=== PATIENT | female | born 1935 | race Caucasian/White ===

== ENCOUNTER → 2017-10-30 13:09 | Outpatient (CLI) | payer MEDICARE, BC ==
[2016-03-18 10:40] VITALS: BMI 22.5
[~2017-10-30 13:09] MED LIST: ALENDRONATE SOD70 MG PO; ASCORBIC ACID500 MG; BEET ROOT PO; COLACE100 MG PO; FLORAJEN3 CAPS460 MG PO; HYDROCODON-ACE1 EAC7 PO; HYDROCODONE-APA1 TAB PO; LEVAQUIN500 MG PO; MIRAPEX0.125 MG PEG; MIRAPEX0.125 MG PO; MULTIPLE VITAMI1 TA1 PO; PRESERVISION AR1 CAP PO; PROBENECID500 MG PO; PROBIOTIC250 MG PO; RED YEAST RICE600 MG PO; SINEMET 10/101 UDTAB PO; ULTRAM50 MG PO; VASOTEC10 MG PO; VITAMIN C250 MG PT; VITAMIN D31000 UNIT PO; ZOFRAN4 MG PO
== END | disposition home or self-care (01) ==
LOC: D.LABREF 13:09
DX: Z96.619 Presence of unspecified artificial shoulder joint (principal); Z11.8 Encounter for screening for other infectious and parasitic diseases

== ENCOUNTER 2017-11-05 09:38 | Inpatient (IN) | payer MEDICARE, BC ==
[2017-11-03 15:40] LABS: BASOPHILS 0.3 % (0-2); EOSINOPHILS 1.1 % (0-7); HEMATOCRIT 38.6 % (36.0-48.0); HEMOGLOBIN 12.7 g/dL (12-16); IMMATURE GRANULOCYTES 0.1 % (0-5); LYMPHOCYTES 29.2 % (15-50); MCH 31.9 pg (26.0-34.0); MCHC 32.9 g/dL (31.0-37.0); MEAN PLATELET VOLUME 9.7 fL (7.4-10.4); MONOCYTES 9.9 % (2-11); NEUTROPHILS 59.4 % (40-80); PLATELET COUNT 392 10x3/uL (130-400); RBC 3.98 10x6/uL (4.00-5.40); RDW 12.9 % (11.5-14.5); WBC 7.1 10x3/uL (4.8-10.8)
[2017-11-03 15:53] LABS: APPEARANCE HAZY (CLEAR); BILIRUBIN NEGATIVE (NEGATIVE); COLOR YELLOW (YELLOW); GLUCOSE NEGATIVE (NEGATIVE); KETONE NEGATIVE (NEGATIVE); NITRITE POSITIVE (NEGATIVE); PROTEIN NEGATIVE (NEGATIVE); SPECIFIC GRAVITY 1.025 (1.005-1.020); UROBILINOGEN NORMAL (NORMAL)
[2017-11-03 15:54] LABS: RED CELLS - URINE 0-5 /hpf (0-5); WHITE CELLS - URINE >50 /hpf (0-5)
[2017-11-03 15:55] LABS: BACTERIA MODERATE /hpf (NONE SEEN); EPITHELIAL CELLS 0-5 /hpf (0-5)
[2017-11-03 15:58] LABS: ANION GAP 12.6 mmol/L (8-16); APTT 29.7 SECONDS (22.8-39.4); CARBON DIOXIDE 26.7 mmol/L (21.0-32.0); CREATININE - SERUM 0.8 mg/dL (0.6-1.3); INR 1.08 (0.85-1.17); POTASSIUM - SERUM 4.3 mmol/L (3.5-5.1); PROTIME 13.6 SECONDS (11.6-15.0)
[~2017-11-05] VITALS: Ht 167.6 cm; Wt 63.5 kg
--- NOTE | ~2017-11-05 | OP ---
PATIENT NAME: ELICIA NUNES MEDICAL RECORD: [id number] :37 LOCATION:[facility] ADMISSION DATE:11/05/17 SURGEON: BRI COLON MD DATE OF OPERATION: 11/05/2017 PREOPERATIVE DIAGNOSIS: Complex periprosthetic fracture of the right shoulder. POSTOPERATIVE DIAGNOSIS: Complex periprosthetic fracture of the right shoulder. PROCEDURE: Revision reverse total shoulder arthroplasty. ANESTHESIA: General. INTRAOPERATIVE COMPLICATIONS: None. SUMMARY OF PATHOLOGIC FINDINGS: Consistent with the preoperative diagnosis. The patient had a periprosthetic fracture about a primary total shoulder arthroplasty. ESTIMATED BLOOD LOSS: 800 cc. OPERATIVE SUMMARY IN DETAIL: After obtaining the appropriate preoperative orthopedic surgery consent as well as anesthetic consultation, evaluation and clearance, the patient was brought to the operating room and placed on the operating table in supine position. After general laryngeal mask airway was administered, the patient was placed in the beach chair position. All pressure points were well padded. She was held firmly to the operating table using the vacuum pack suction system. Right upper extremity was prepped and draped in routine sterile fashion. The arm was held in the Trimano arm holding device. Deltopectoral incision was created over the old deltopectoral interval. Dissection was gently carried down to the level of fracture and the previously placed total shoulder arthroplasty, which was removed as was the glenoid, which was loose. Attention was first turned to glenoid resurfacing. Serial and sequential glenoid reaming was then followed by preparations for the baseplate. Baseplate was then put into place using the Tornier Metaglene. After this, the glenosphere was affixed with central screw and peripheral Henderson taper. Next, serial and sequential reaming and broaching were done for the 100-mm stem using [employer] Dream[employer] system. Appropriate version was checked and the stem was put into place. This was then followed by multiple trials with the polyethylene. Appropriate polyethylene was fixed. The shoulder was reduced. Greater tuberosities were then reapproximated on the lateral side of the reverse total shoulder. Having completed this, the wound was copiously irrigated. Please note that fluoroscopy was used during this case to be sure that the intramedullary guidewire was appropriately placed. The wound was copiously irrigated. Deltopectoral interval was closed followed by skin closure with #1 Vicryl and skin julisa. Sterile dressings were applied. The patient was awakened, taken to recovery in stable condition. All final needle and sponge counts were correct. TRANSINT:[id number] Voice Confirmation ID: [id number] DOCUMENT ID: [id number] OPERATIVE REPORT [id number] ELICIA NUNES MD, BRI HERMOSILLO at 1117 CC: [id number] DICTATION DATE: 12/03/17940 CHIEF INNOVATION OFFICER: 12/03/17 1110 DIS IN 11/08/17 [place] [id number]
[~2017-11-05 09:38] MED LIST changes: -COLACE100 MG PO; -FLORAJEN3 CAPS460 MG PO; -HYDROCODONE-APA1 TAB PO; -ZOFRAN4 MG PO
[2017-11-05 10:46] VITALS: BP 114/64; BMI 22.8
[2017-11-05 15:59] VITALS: BP 125/70
[2017-11-05 20:46] VITALS: BP 89/56
[2017-11-06] VITALS (7 sets, daily range): BP systolic 87–136; BP diastolic 47–72; Ht 167.6 cm; Wt 63.5 kg
[2017-11-06 06:26] LABS: HEMATOCRIT 28.6 % (36.0-48.0); HEMOGLOBIN 9.2 g/dL (12-16); MCH 31.5 pg (26.0-34.0); MCHC 32.2 g/dL (31.0-37.0); MCV 97.9 fL (80.0-100.0); MEAN PLATELET VOLUME 9.9 fL (7.4-10.4); RBC 2.92 10x6/uL (4.00-5.40); RDW 13.1 % (11.5-14.5); WBC 10.2 10x3/uL (4.8-10.8)
[2017-11-07 04:20] VITALS: BP 112/59
[2017-11-07 05:06] LABS: HEMATOCRIT 27.6 % (36.0-48.0); MCH 31.6 pg (26.0-34.0); MCHC 32.6 g/dL (31.0-37.0); MCV 96.8 fL (80.0-100.0); RBC 2.85 10x6/uL (4.00-5.40); RDW 13.1 % (11.5-14.5); WBC 12.4 10x3/uL (4.8-10.8)
[2017-11-07 08:00] VITALS: BP 111/67
[2017-11-07 11:54] VITALS: BP 120/68
[2017-11-07 15:31] VITALS: BP 125/75
[2017-11-07 20:00] VITALS: BP 129/61
[2017-11-08] VITALS: BP 122/70
[2017-11-08 06:12] VITALS: BP 125/70
[2017-11-08 08:19] VITALS: BP 139/77
[2017-11-08 12:19] VITALS: BP 145/80
[2017-11-08] MEDS ORDERED: HYDROCODONE-APA1 TAB PO (19:22)
[2017-11-08] MEDS ORDERED: COLACE100 MG PO (19:25)
[2017-11-08] MEDS ORDERED: FLORAJEN3 CAPS460 MG PO (19:25)
[2017-11-08] MEDS ORDERED: ZOFRAN4 MG PO (19:26)
[2017-11-08 20:21] VITALS: BP 162/66
== END 2017-11-08 21:01 | DRG 483 ==
LOC: D.MS 09:38 → D.SDCHOLD 09:38 → D.MS 15:41
PROVIDERS: Orthopaedic Surgery
PROC: 0RPJ0JZ Removal of Synthetic Substitute from Right Shoulder Joint, Open Approach (ICD-10-PCS; 2017-11-05)
PROC: 0RRJ00Z Replacement of Right Shoulder Joint with Reverse Ball and Socket Synthetic Substitute, Open Approach (ICD-10-PCS; principal; 2017-11-05 13:15)
DX: M97.31XA Periprosthetic fracture around internal prosthetic right shoulder joint, initial encounter (principal); D62 Acute posthemorrhagic anemia; N39.0 Urinary tract infection, site not specified; I10 Essential (primary) hypertension; R13.10 Dysphagia, unspecified; G20 Parkinson's disease

== ENCOUNTER 2017-11-08 19:39 | Inpatient (IN) | payer MEDICARE, BC ==
[~2017-11-08] VITALS: Ht 167.6 cm; Wt 63.5 kg
--- NOTE | ~2017-11-08 | RHP ---
PATIENT: ELICIA NUNES MEDICAL RECORD: [id number] ACCOUNT: [id number] LOCATION:[facility] : 36 ADMISSION DATE: 11/08/17 REHABILITATION HISTORY AND PHYSICAL EXAMINATION POST ADMISSION PHYSICIAN EXAMINATION DATE OF ADMISSION: 11/08/2017. ADMITTING DIAGNOSIS: Parkinson. HISTORY OF PRESENT ILLNESS: The patient is an 82-year-old female patient admitted to the inpatient rehab with Parkinson. She had a right reverse total shoulder on 11/05/[address] Anders. She was seen in the office on 10/29/2017 for closed fracture of the right upper humerus. She has been to the ER in [place] on 10/23/2017 where she was told she had fracture of right humerus after a fall at home, was placed in a sling, so she can follow up with orthopedics. She has got a history of Parkinson's, hypertension, dysphagia, and acute blood loss anemia. She is managed by her medications for her Parkinson's. She lives at home with her and plans to return back to her prior level of functioning. The patient is now status post right reverse total shoulder. She has a history of Parkinson's, was ambulating with assistance and a rolling walker. She has fallen multiple times per nursing. She is able to ambulate in the room and transfer to chair with moderate assist moving slowly from her Parkinson's gait. The patient does have a history of confusion to place, time and situation. She wears glasses. She has history of bilateral cataracts and right eye problems. She does wear dentures. She has a history of dysphagia. She has tremors with a droop to her right side of her mouth, his spouse says this is basically normal. She did have Botox to help this in the past. She is motivated and wants to return home and get back to her prior level of functioning, hopefully after discharging from the rehabilitation. COMORBIDITIES: Include degenerative joint disease, hypertension, dysphagia, Parkinson's, proximal humerus fracture, blood loss anemia. PAST MEDICAL HISTORY: Significant for weakness, tremors, Parkinson's, hypertension. PAST SURGICAL HISTORY: Includes gallbladder, appendectomy, tonsillectomy, adenoidectomy, hernia surgery, cataract surgery. ALLERGIES: ADHESIVE and LASIX. CURRENT MEDICATIONS: Include MiraLax 17 grams in 8 ounces of water daily. She is on Mirapex 0.125 mg q.h.s., Zofran p.r.n. nausea and vomiting, multivitamin daily, hydrocodone 10/325 one tab q.4 hours p.r.n., enalapril 10 mg daily. She is on Colace 100 mg b.i.d. and Sinemet 10/100 one tab t.i.d. p.r.n. HABITS: No current alcohol or tobacco use. FAMILY HISTORY: Noncontributory. SOCIAL HISTORY: The patient will return back over to [place] with her . REVIEW OF SYSTEMS: GENERAL: Does complain of weakness and fatigue. HISTORY AND PHYSICAL [id number] ELICIA NUNES HEENT: Denies cold, cough, or congestion. CARDIOVASCULAR: Denies chest pain. PHYSICAL EXAMINATION: VITAL SIGNS: Stable, afebrile. GENERAL: Elderly female in no acute distress, alert upon exam. HEENT: Normocephalic and atraumatic. Mucosa moist. NECK: Supple. She does have some facial drooping noted. LUNGS: Clear at this time. HEART: Regular rate and rhythm. ABDOMEN: Benign. EXTREMITIES: No clubbing, cyanosis, or edema. She does have a sling in place. NEUROLOGIC: Consistent with Parkinson's. LABORATORY DATA: Her white count is 10.2, H&H 9 and 27, and platelet count is 414. Her sodium is 143, potassium 3.9, BUN and creatinine of 6 and 0.6, and blood sugar is noted to be 90. ASSESSMENT: This is an 82-year-old female patient admitted to the rehab with a working diagnosis of Parkinson's complicated by a reverse total shoulder repair. The patient has potential to make improvement. We instituted the following multidisciplinary therapies including, but not limited to physical, occupational, respiratory, speech, nutritional services, prosthetics and orthotics. Given her complex medical condition and risk for more complications, rehabilitation service cannot be provided a low level of care such as skilled nurse facility. PLAN: 1. Admit to [facility] rehab for intensive inpatient therapy to include the following disciplines: A. Physical therapy to improve gait, all transfer skills and bed mobility to a modified independent level. B. Occupational therapy to improve activities of daily living to a modified independent level. C. Case management to assist with discharge planning and placement options. D. Nutrition to assist with nutritional needs. E. Rehabilitation nursing to assist and monitor the patient's underlying medical conditions and to assist with any type bowel or bladder management. 2. The patient's current medication will be continued. 3. The patient will be placed on standard fall precautions. 4. The patient's estimated length of stay is approximately 7-10 days. 5. Discuss this patient during care team staff meeting this week. TRANSINT:[id number] Voice Confirmation ID: [id number] DOCUMENT ID: [id number] DELANEY notes whether there has been none or any medical/functional change since admission: - No change since the PAS DELANEY attests patient continues to be appropriate for IRF: - Remains appropriate for the IRF HISTORY AND PHYSICAL [id number] ELICIA NUNES SCOTT MD at 1511 CC: [id number] DICTATION DATE: 11/09/1730 GROUP PRACTICE PEDIATRICIAN: 11/09/17 1138 ADM IN [place] [id number] [place] [id number]
[~2017-11-08 19:39] MED LIST changes: +COLACE100 MG PO; +FLORAJEN3 CAPS460 MG PO; +HYDROCODONE-APA1 TAB PO; +ZOFRAN4 MG PO
[2017-11-08 22:13] VITALS: BP 148/84; BMI 22.6
[2017-11-09 06:43] LABS: BASOPHILS 0.2 % (0-2); EOSINOPHILS 0.9 % (0-7); HEMATOCRIT 27.7 % (36.0-48.0); IMMATURE GRANULOCYTES 0.1 % (0-5); LYMPHOCYTES 21.8 % (15-50); MCH 31.4 pg (26.0-34.0); MCHC 32.5 g/dL (31.0-37.0); MCV 96.5 fL (80.0-100.0); MEAN PLATELET VOLUME 9.9 fL (7.4-10.4); MONOCYTES 11.4 % (2-11); NEUTROPHILS 65.6 % (40-80); PLATELET COUNT 414 10x3/uL (130-400); RBC 2.87 10x6/uL (4.00-5.40); RDW 12.8 % (11.5-14.5); WBC 10.2 10x3/uL (4.8-10.8)
[2017-11-09 06:53] LABS: CALC OSMOLALITY 282 mosm/kg (275-300); CALCIUM 7.9 mg/dL (8.5-10.1); CARBON DIOXIDE 23.6 mmol/L (21.0-32.0); CHLORIDE - SERUM 109 mmol/L (98-107); CREATININE - SERUM 0.6 mg/dL (0.6-1.3); GLUCOSE 90 mg/dL (74-106); POTASSIUM - SERUM 3.9 mmol/L (3.5-5.1); SODIUM 143 mmol/L (136-145); UREA NITROGEN 6 mg/dL (7-18); eGFR NON AFRICAN AMERICAN > 90 mL/min (90-120)
[2017-11-09 11:06] VITALS: Ht 167.6 cm; Wt 63.5 kg
[2017-11-09 12:41] VITALS: BP 153/86
[2017-11-09 19:23] VITALS: BP 106/63
[2017-11-10 08:16] VITALS: BP 143/77
[2017-11-10 19:24] VITALS: BP 122/62
[2017-11-11 07:37] LABS: CALC OSMOLALITY 283 mosm/kg (275-300); CALCIUM 7.9 mg/dL (8.5-10.1); CARBON DIOXIDE 24.2 mmol/L (21.0-32.0); CHLORIDE - SERUM 108 mmol/L (98-107); CREATININE - SERUM 0.6 mg/dL (0.6-1.3); GLUCOSE 80 mg/dL (74-106); POTASSIUM - SERUM 3.6 mmol/L (3.5-5.1); SODIUM 143 mmol/L (136-145); UREA NITROGEN 13 mg/dL (7-18); eGFR NON AFRICAN AMERICAN > 90 mL/min (90-120)
[2017-11-11 07:41] LABS: BASOPHILS 0.2 % (0-2); EOSINOPHILS 3.6 % (0-7); HEMATOCRIT 26.8 % (36.0-48.0); HEMOGLOBIN 8.7 g/dL (12-16); IMMATURE GRANULOCYTES 0.2 % (0-5); LYMPHOCYTES 28.2 % (15-50); MCH 31.6 pg (26.0-34.0); MCHC 32.5 g/dL (31.0-37.0); MCV 97.5 fL (80.0-100.0); MEAN PLATELET VOLUME 9.7 fL (7.4-10.4); MONOCYTES 10.7 % (2-11); NEUTROPHILS 57.1 % (40-80); PLATELET COUNT 478 10x3/uL (130-400); RBC 2.75 10x6/uL (4.00-5.40); RDW 13.3 % (11.5-14.5); WBC 8.4 10x3/uL (4.8-10.8)
[2017-11-11 08:01] VITALS: BP 132/68
[2017-11-11 19:46] VITALS: BP 131/62
[2017-11-12 08:23] VITALS: BP 131/67
[2017-11-12 19:17] VITALS: BP 118/54
[2017-11-13 08:30] VITALS: BP 126/73
[2017-11-13 23:49] VITALS: BP 98/53
[2017-11-14 08:00] VITALS: BP 95/53
[2017-11-14 19:38] VITALS: BP 101/43
[2017-11-15 15:08] VITALS: BP 93/42
[2017-11-16 01:27] VITALS: BP 141/78
[2017-11-16 07:13] LABS: BASOPHILS 0.2 % (0-2); EOSINOPHILS 4.4 % (0-7); HEMATOCRIT 28.8 % (36.0-48.0); HEMOGLOBIN 9.4 g/dL (12-16); IMMATURE GRANULOCYTES 0.2 % (0-5); LYMPHOCYTES 31.8 % (15-50); MCHC 32.6 g/dL (31.0-37.0); MEAN PLATELET VOLUME 9.2 fL (7.4-10.4); NEUTROPHILS 53.4 % (40-80); PLATELET COUNT 511 10x3/uL (130-400); RBC 2.94 10x6/uL (4.00-5.40); RDW 13.7 % (11.5-14.5)
[2017-11-16 07:24] LABS: CALC OSMOLALITY 278 mosm/kg (275-300); CARBON DIOXIDE 25.3 mmol/L (21.0-32.0); CHLORIDE - SERUM 107 mmol/L (98-107); CREATININE - SERUM 0.4 mg/dL (0.6-1.3); GLUCOSE 81 mg/dL (74-106); SODIUM 141 mmol/L (136-145); UREA NITROGEN 11 mg/dL (7-18); eGFR NON AFRICAN AMERICAN > 90 mL/min (90-120)
[2017-11-16 07:40] VITALS: BP 139/76
[2017-11-16 19:19] VITALS: BP 93/50
[2017-11-17 08:00] VITALS: BP 122/71
[2017-11-17 19:09] VITALS: BP 95/52
[2017-11-18 07:04] LABS: BASOPHILS 0.4 % (0-2); EOSINOPHILS 3.2 % (0-7); HEMATOCRIT 29.2 % (36.0-48.0); HEMOGLOBIN 9.3 g/dL (12-16); IMMATURE GRANULOCYTES 0.1 % (0-5); LYMPHOCYTES 33.4 % (15-50); MCHC 31.8 g/dL (31.0-37.0); MCV 97.3 fL (80.0-100.0); MEAN PLATELET VOLUME 9.2 fL (7.4-10.4); NEUTROPHILS 52.9 % (40-80); PLATELET COUNT 470 10x3/uL (130-400); WBC 8.3 10x3/uL (4.8-10.8)
[2017-11-18 07:35] LABS: CALC OSMOLALITY 285 mosm/kg (275-300); CALCIUM 8.4 mg/dL (8.5-10.1); CARBON DIOXIDE 24.7 mmol/L (21.0-32.0); CHLORIDE - SERUM 109 mmol/L (98-107); CREATININE - SERUM 0.6 mg/dL (0.6-1.3); GLUCOSE 87 mg/dL (74-106); POTASSIUM - SERUM 4.3 mmol/L (3.5-5.1); SODIUM 143 mmol/L (136-145); UREA NITROGEN 18 mg/dL (7-18); eGFR NON AFRICAN AMERICAN > 90 mL/min (90-120)
[2017-11-18 08:00] VITALS: BP 127/71
[2017-11-18 22:07] VITALS: BP 115/66
[2017-11-19 08:00] VITALS: BP 132/73
[2017-11-19] MEDS ORDERED: HYDROCODONE-APA1 TAB PO (08:15)
== END 2017-11-19 13:13 | disposition home health service (06) | DRG 56 ==
LOC: D.REHAB 19:39
PROVIDERS: Emergency Medicine
DX: G20 Parkinson's disease (principal); G93.40 Encephalopathy, unspecified; D62 Acute posthemorrhagic anemia; S42.201D Unspecified fracture of upper end of right humerus, subsequent encounter for fracture with routine healing; W19.XXXD Unspecified fall, subsequent encounter; I10 Essential (primary) hypertension; R13.10 Dysphagia, unspecified; M19.90 Unspecified osteoarthritis, unspecified site; Z98.890 Other specified postprocedural states